=== PATIENT | male | born 2000 | race Asian ===

== ENCOUNTER 2019-10-01 04:50 | Emergency (ER) | payer OTHER, SELFPAY ==
[2019-10-01] MEDS ORDERED: Lidocaine 1% w/Epinephrine 1:100K 30 ML VIAL ONE (04:56)
[2019-10-01] MEDS ORDERED: Lidocaine 2% w/ Epi 1:200K 10 ML VIAL ONE (04:56)
[2019-10-01] MEDS ORDERED: Lidocaine 2% PF 5 ML VIAL ONE (05:08)
[2019-10-01] MEDS ORDERED: Adacel (T-DAP) 0.5 ML SYRINGE ONE (05:13)
[2019-10-01] MEDS ORDERED: Bacitracin 1 PK ONE (05:20)
== END 2019-10-01 05:30 | disposition home or self-care (01) ==
LOC: BURERS 04:50
DX: S61.302A Unspecified open wound of right middle finger with damage to nail, initial encounter (principal); S61.304A Unspecified open wound of right ring finger with damage to nail, initial encounter; Z23 Encounter for immunization; V40.5XXA Car driver injured in collision with pedestrian or animal in traffic accident, initial encounter
CPT/HCPCS: 90471; 90715; J2001